=== PATIENT | female | born 1955 | race Caucasian/White ===

== ENCOUNTER → 2017-06-27 | Day surgery (SDC) | payer OTHER ==
[~2017-06-27] MED LIST: ASPI325T PO; FISH1000 PO; GLUCOSAMINE1500 CO1; LACTATED RINGER'S 1000 ML INJ 1,000 ML ONE; LANO0.1212 PO; NALOXONE HCL 0.4 MG/ML AMP ONE; OMEP20TA PO; OYST500T77 PO; PACE200T4 PO; PROPOFOL 200 MG/20 ML AMP IV ONE; SYNT50TA PO; TAB-TAB PO; TOVI4TAB PO
--- NOTE | 2017-06-27 12:19 | GIPROC ---
[facility] [address] [facility], [id number] EGD PROCEDURE REPORT EXAM DATE: 06/27/2017 PATIENT NAME: Jeannette Apple MR #: [id number] BIRTHDATE: 1955 ATTENDING: Shawnee Cedillo MD ORDER #: [id number] SUPERVISOR SALVAGE: Marilia Morales RN STATUS: outpatient INDICATIONS: The patient is a 62 yr old female here for an EGD due to history of Wagner's esophagus PROCEDURE PERFORMED: EGD w/ biopsy MEDICATIONS: None and Per Anesthesia. TOPICAL ANESTHETIC: CONSENT: The patient understands the risks and benefits of the procedure and understands that these risks include, but are not limited to: sedation, allergic reaction, infection, perforation and/or bleeding. Alternative means of evaluation and treatment include, among others: physical exam, x-rays, and/or surgical intervention. The patient elects to proceed with this endoscopic procedure. medical equipment was checked for proper function. Hand hygiene and appropriate measures for infection prevention was taken. After the risks, benefits and alternatives of the procedure were thoroughly explained, Informed consent was verified, confirmed and timeout was successfully executed by the treatment team. The patient was anesthetized with topical anesthesia and the EC-2990i ([id number]) endoscope was introduced through the mouth and advanced to the second portion of the duodenum. Retroflexed views revealed no abnormalities The gastroscope was then slowly withdrawn and removed. ESOPHAGUS: There was short segment Wagner's esophagus found in the distal esophagus. The length of circumferential Wagner's was 1cm (Effort C1) and the length of Maximal extent of Wagner's was 2cm (Effort M2). There was no nodular mucosa noted in the Wagner's segment. Multiple biopsies were performed using cold forceps. Sample sent for histology. STOMACH: There was erythematous moderate gastritis in the gastric antrum. DUODENUM: The duodenal mucosa appeared normal in the bulb and second portion of the duodenum. ADVERSE EVENTS: There were no complications. IMPRESSIONS: 1. There was short segment Wagner's esophagus found in the distal esophagus; multiple biopsies were performed 2. There was erythematous gastritis in the gastric antrum 3. Normal duodenal mucosa in the bulb and second portion of the duodenum 4. Retroflexed views revealed no abnormalities RECOMMENDATIONS: 1. Await biopsy results. Biopsy results will not be ready for 7-10 days. If you don't hear from us in two weeks, call our office for biopsy results. 2. Anti-reflux regimen 3. Continue PPI 4. Follow-up: GI clinic 2 week(s) PATIENT CONDITION: stable DISPOSITION: Home REPEAT EXAM: Return 1 year EGD pending biopsy results Shawnee Cedillo MD eSigned: Shawnee Cedillo MD 06/27/2017 12:19 PM cc: Raegan Resendez PATIENT NAME: Jeannette Apple MR#: [id number]
== END | disposition home or self-care (01) ==
LOC: ESDC 10:28
PROVIDERS: ATTEND Internal Medicine Gastroenterology
DX: K22.70 Barrett's esophagus without dysplasia (principal); K29.70 Gastritis, unspecified, without bleeding
CPT/HCPCS: 00731; 43239; 88305; J2310; J3010; J7120

== ENCOUNTER 2018-01-21 17:45 | Inpatient (IN) ==
[2018-01-21] MEDS ORDERED: Metoprolol Inj 5 MG/5 ML Vial IV.PUSH ONE (19:14)
[2018-01-21] MEDS ORDERED: Diatrizoate Meglum/Diatrizoate Sod Liq 9 ML UDC PO ONE (19:14)
--- NOTE | 2018-01-21 19:38 | ED ---
HPI General Chief Complaint: Abdominal Pain Stated Complaint: R side abdominal pain Time Seen by Provider: 01/21/18 18:51 Source: patient Mode of arrival: ambulatory Limitations: no limitations History of Present Illness HPI narrative: 62-year-old female who presents to the ED for evaluation of right lower quadrant abdominal pain. Per patient has had this pain for the past 2 days. Started yesterday. Today not getting better. Per patient is concerned about appendicitis. Per patient she still has her appendix. No other medical issues. She states not have any bowel movements or urinary issues. No nausea or vomiting. Per patient the pain comes and goes. Feels like an ache. Patient initially started on the lower abdomen bilaterally and it focused on the right lower quadrant currently only in the right lower quadrant. Does not radiate. Pain per patient is 6 out of 10. Has not taken anything for this. Has not seen anybody for this. Last surgery per patient was about 5-6 years ago when she had a gallbladder removed. Related Data Home Medications Medication Instructions Recorded Confirmed dabigatran etexilate [Pradaxa] 150 mg PO BID 01/22/18 01/22/18 levothyroxine 75 mcg PO DAILY 01/22/18 01/22/18 losartan 100 mg PO DAILY 01/22/18 01/22/18 metoprolol tartrate 50 mg PO BID 01/22/18 01/22/18 omeprazole magnesium [Prilosec OTC] 20 mg PO DAILY 01/22/18 01/22/18 oxybutynin chloride 5 mg PO BID 01/22/18 01/22/18 Allergies Allergy/AdvReac Type Severity Reaction Status Date / Time penicillin G Allergy Severe CHILDHOOD Verified 01/21/18 18:47 Review of Systems ROS: all other systems reviewed are negative [facility] Medical History Medical History Afib (Acute) GERD (gastroesophageal reflux disease) (Acute) HTN (hypertension) (Acute) Hypothyroid (Acute) Surgical History Surgical History H/O dilation and curettage (Acute) H/O: (Acute) History of lobectomy of lung (Acute) History of thoracentesis (Acute) Hx of cholecystectomy (Acute) Social History Social History Substance History: No History of Abuse Second Hand Smoke Exposure: No Smoking Status: Former smoker Tobacco Type: Cigarettes How Often Do You Have a Drink Containing Alcohol: Never Recent Travel in [facility] within the Last 8 Weeks: No Recent Out of Country Travel within the Last 8 Weeks: No Immunization History Tetanus Immunization: <5 Years Exam Narrative Exam Narrative: GENERAL: Well apperaing SKIN: Focused skin assessment warm/dry. HEAD: Atraumatic. Normocephalic. EYES: Pupils equal and round. No scleral icterus. No injection or drainage. ENT: No nasal bleeding or discharge. Mucous membranes pink and moist. Tongue is midline. No uvula deviation. NECK: Trachea midline. No JVD. CARDIOVASCULAR: Irregular irregular rate and rhythm. No murmur appreciated. RESPIRATORY: No accessory muscle use. Clear to auscultation. Breath sounds equal bilaterally. GASTROINTESTINAL: Abdomen soft, RLQ reproducible pain, nondistended. Hepatic and splenic margins not palpable. MUSCULOSKELETAL: No obvious deformities. No clubbing. No cyanosis. No edema. Full ROM of the upper and lower extremities bilaterally. 2+ pulses. NEUROLOGICAL: Awake and alert. No obvious cranial nerve deficits. Motor grossly within normal limits. Normal speech. PSYCHIATRIC: Appropriate mood and affect; insight and judgment normal. Course Initial Documented Vital Signs Temperature 98.4 F 01/21/18 17:58 Pulse Rate 103 H 01/21/18 17:58 Respiratory Rate 20 01/21/18 17:58 Blood Pressure 156/96 H 01/21/18 17:58 Last Documented Vital Signs Temperature 97.4 F L 01/23/18 12:00 Pulse Rate 93 H 01/23/18 12:00 Respiratory Rate 17 01/23/18 12:00 Blood Pressure 125/60 01/23/18 12:00 Pulse Oximetry 95 01/23/18 12:00 Medical Decision Making ZAHIDA Attestation ZAHIDA supervised visit: Yes Attestation: I, Dr. Aguirre have reviewed the advance practice practitioner's documentation and am in agreement, met with the patient face to face, made the diagnosis, and the medical decision making was done by me. *My assessment and Findings: Abdominal pain. Appendicitis. [facility] Narrative Medical decision making narrative: 62-year-old female who presents to the ED for evaluation of right lower quadrant abdominal pain. Patient was properly examined and found to have signs and symptoms consistent appears to be possible appendicitis. Patient currently in A. fib RVR. Per patient she missed 3 of her doses of her metoprolol. She was given 1 dose of metoprolol IV here with some improvement of her heart rate. Labs and imaging showed atrial fibrillation in RVR and acute early appendicitis. Case discussed with Dr Marquis who agrees with likely surgical treatment. He wants patient admitted to medicine due to patient in atrial fib in RVR. renee isabelip started. Dr Rivero agrees to admission. Medical Screen Exam Complete: Yes Emergency Medical Condition: Yes Differential Diagnosis Differential Diagnosis: Atrial fibrillation RVR versus appendicitis versus acute abdomen versus diverticulitis Medical Records Medical records reviewed: Yes I reviewed the patient's medical records. Lab Data Lab results reviewed: Yes I reviewed the patient's lab results. Result diagrams: 01/23/18 05:55 01/21/18 20:15 Lab Results 01/21/18 01/21/18 01/21/18 Range/Units 20:15 20:15 20:15 WBC 9.1 (4.0-11.0) th/mm3 RBC 4.12 (4.00-5.30) mil/mm3 Hgb 12.1 (11.6-15.3) gm/dL Hct 36.6 (35.0-46.0) % MCV 89.0 (80.0-100.0) fL MCH 29.5 (27.0-34.0) pg MCHC 33.1 (32.0-36.0) % RDW 16.2 (11.6-17.2) % Plt Count 239 (150-450) th/mm3 MPV 8.4 (7.0-11.0) fL Neut % (Auto) 68.8 (16.0-70.0) % Lymph % (Auto) 21.8 (9.0-44.0) % Haywood % (Auto) 7.6 (0.0-8.0) % Eos % (Auto) 1.2 (0.0-4.0) % Baso % (Auto) 0.6 (0.0-2.0) % Neut # (Auto) 6.2 (1.8-7.7) th/mm3 Lymph # (Auto) 2.0 (1.0-4.8) th/mm3 Haywood # (Auto) 0.7 (0.0-0.9) th/mm3 Eos # (Auto) 0.1 (0.0-0.4) th/mm3 Baso # (Auto) 0.1 (0.0-0.2) th/mm3 WBC Differential . Differential Comment Auto diff final PT (9.8-11.6) sec INR Ratio APTT (23.4-31.7) sec Sodium 138 (136-145) meq/L Potassium 3.7 (3.5-5.1) meq/L Chloride 102 (98-107) meq/L Carbon Dioxide 27.5 (21.0-32.0) meq/L Anion Gap 9 (5-15) meq/L BUN 9 (7-18) mg/dL Creatinine 0.86 (0.50-1.00) mg/dL Estimated GFR 67 L (>89) mL/min POC Glucose (68-110) mg/dl Random Glucose 68 L (74-106) mg/dL Lactic Acid 2.2 H (0.4-2.0) mmol/L Calcium 8.7 (8.5-10.1) mg/dL Magnesium 1.7 (1.5-2.5) mg/dL Total Bilirubin 0.6 (0.2-1.0) mg/dL AST 34 (15-37) U/L ALT 22 (10-53) U/L Alkaline Phosphatase 106 (45-117) U/L Total Protein 7.7 (6.4-8.2) g/dL Albumin 3.5 (3.4-5.0) g/dL Lipase 95 (73-393) U/L Urine Color (Yellw/Straw) Urine Clarity (Clear) Urine pH (5.0-8.5) Ur Specific Belle (1.002-1.035) Urine Protein (Neg-Trace) mg/dL Urine Glucose (UA) (Negative) mg/dL Urine Ketones (Negative) mg/dL Urine Occult Blood (Negative) Urine Nitrate (Negative) Urine Bilirubin (Negative) Urine Urobilinogen (Less than 2) mg/dL Ur Leukocyte Esterase (Negative) Urine RBC (0-3) /hpf Urine WBC (0-5) /hpf Ur Squamous Epith Cells (0-5) /hpf Urine Bacteria (None) /hpf Urine Mucus (Occasional) /lpf Micro UA Comment Ur Microscopic Review Urine Culture Comments Blood Type Blood Type Recheck Antibody Screen 01/21/18 01/21/18 01/22/18 Range/Units 20:15 22:20 00:08 WBC (4.0-11.0) th/mm3 RBC (4.00-5.30) mil/mm3 Hgb (11.6-15.3) gm/dL Hct (35.0-46.0) % MCV (80.0-100.0) fL MCH (27.0-34.0) pg MCHC (32.0-36.0) % RDW (11.6-17.2) % Plt Count (150-450) th/mm3 MPV (7.0-11.0) fL Neut % (Auto) (16.0-70.0) % Lymph % (Auto) (9.0-44.0) % Haywood % (Auto) (0.0-8.0) % Eos % (Auto) (0.0-4.0) % Baso % (Auto) (0.0-2.0) % Neut # (Auto) (1.8-7.7) th/mm3 Lymph # (Auto) (1.0-4.8) th/mm3 Haywood # (Auto) (0.0-0.9) th/mm3 Eos # (Auto) (0.0-0.4) th/mm3 Baso # (Auto) (0.0-0.2) th/mm3 WBC Differential Differential Comment PT 11.1 (9.8-11.6) sec INR 1.1 Ratio APTT 33.8 H (23.4-31.7) sec Sodium (136-145) meq/L Potassium (3.5-5.1) meq/L Chloride (98-107) meq/L Carbon Dioxide (21.0-32.0) meq/L Anion Gap (5-15) meq/L BUN (7-18) mg/dL Creatinine (0.50-1.00) mg/dL Estimated GFR (>89) mL/min POC Glucose 92 (68-110) mg/dl Random Glucose (74-106) mg/dL Lactic Acid (0.4-2.0) mmol/L Calcium (8.5-10.1) mg/dL Magnesium (1.5-2.5) mg/dL Total Bilirubin (0.2-1.0) mg/dL AST (15-37) U/L ALT (10-53) U/L Alkaline Phosphatase (45-117) U/L Total Protein (6.4-8.2) g/dL Albumin (3.4-5.0) g/dL Lipase (73-393) U/L Urine Color Straw (Yellw/Straw) Urine Clarity Clear (Clear) Urine pH 7.0 (5.0-8.5) Ur Specific Belle 1.003 (1.002-1.035) Urine Protein Negative (Neg-Trace) mg/dL Urine Glucose (UA) Negative (Negative) mg/dL Urine Ketones 20 (Negative) mg/dL Urine Occult Blood Negative (Negative) Urine Nitrate Negative (Negative) Urine Bilirubin Negative (Negative) Urine Urobilinogen Less than 2 (Less than 2) mg/dL Ur Leukocyte Esterase Negative (Negative) Urine RBC Less than 1 (0-3) /hpf Urine WBC 1 (0-5) /hpf Ur Squamous Epith Cells <1 (0-5) /hpf Urine Bacteria Occasional H (None) /hpf Urine Mucus Few H (Occasional) /lpf Micro UA Comment Culture not ind Ur Microscopic Review Not Reportable Urine Culture Comments Culture not ind Blood Type Blood Type Recheck Antibody Screen 01/22/18 01/22/18 01/23/18 Range/Units 02:05 04:02 05:55 WBC 10.5 (4.0-11.0) th/mm3 RBC 3.77 L (4.00-5.30) mil/mm3 Hgb 11.2 L (11.6-15.3) gm/dL Hct 34.0 L (35.0-46.0) % MCV 90.2 (80.0-100.0) fL MCH 29.7 (27.0-34.0) pg MCHC 32.9 (32.0-36.0) % RDW 16.1 (11.6-17.2) % Plt Count 261 (150-450) th/mm3 MPV 7.9 (7.0-11.0) fL Neut % (Auto) 82.0 H (16.0-70.0) % Lymph % (Auto) 11.0 (9.0-44.0) % Haywood % (Auto) 6.1 (0.0-8.0) % Eos % (Auto) 0.7 (0.0-4.0) % Baso % (Auto) 0.2 (0.0-2.0) % Neut # (Auto) 8.6 H (1.8-7.7) th/mm3 Lymph # (Auto) 1.2 (1.0-4.8) th/mm3 Haywood # (Auto) 0.6 (0.0-0.9) th/mm3 Eos # (Auto) 0.1 (0.0-0.4) th/mm3 Baso # (Auto) 0.0 (0.0-0.2) th/mm3 WBC Differential . Differential Comment Auto diff final PT 15.7 H (9.8-11.6) sec INR 1.6 Ratio APTT 40.3 H (23.4-31.7) sec Sodium (136-145) meq/L Potassium (3.5-5.1) meq/L Chloride (98-107) meq/L Carbon Dioxide (21.0-32.0) meq/L Anion Gap (5-15) meq/L BUN (7-18) mg/dL Creatinine (0.50-1.00) mg/dL Estimated GFR (>89) mL/min POC Glucose (68-110) mg/dl Random Glucose (74-106) mg/dL Lactic Acid (0.4-2.0) mmol/L Calcium (8.5-10.1) mg/dL Magnesium (1.5-2.5) mg/dL Total Bilirubin (0.2-1.0) mg/dL AST (15-37) U/L ALT (10-53) U/L Alkaline Phosphatase (45-117) U/L Total Protein (6.4-8.2) g/dL Albumin (3.4-5.0) g/dL Lipase (73-393) U/L Urine Color (Yellw/Straw) Urine Clarity (Clear) Urine pH (5.0-8.5) Ur Specific Belle (1.002-1.035) Urine Protein (Neg-Trace) mg/dL Urine Glucose (UA) (Negative) mg/dL Urine Ketones (Negative) mg/dL Urine Occult Blood (Negative) Urine Nitrate (Negative) Urine Bilirubin (Negative) Urine Urobilinogen (Less than 2) mg/dL Ur Leukocyte Esterase (Negative) Urine RBC (0-3) /hpf Urine WBC (0-5) /hpf Ur Squamous Epith Cells (0-5) /hpf Urine Bacteria (None) /hpf Urine Mucus (Occasional) /lpf Micro UA Comment Ur Microscopic Review Urine Culture Comments Blood Type O Positive Blood Type Recheck Not needed Antibody Screen Negative Imaging Data Attestation: I personally reviewed and interpreted this imaging study as follows : Radiologist's impression: Abdomen/Pelvis CT 01/21/18 19:14 CONCLUSION: 1. Appendix is mildly dilated to 13 mm with very minimal periappendiceal inflammatory changes. Findings are most characteristic of a very early appendicitis. No abscess, obstruction, free fluid or free air. 2. Nonobstructing 4 mm calculus lower pole right kidney. Chest X-Ray 01/22/18 23:52 CONCLUSION: Cardiomegaly with mild basilar atelectasis. ECG Data Attestation: I personally reviewed and interpreted this ECG as follows: Interpretation: EKG shows atrial fibrillation in RVR. Read by me and attending. Discharge Plan Discharge Disposition Patient Disposition: 30 Still Patient Discharge Condition Condition: Stable Discharge Order Discharge Orders: Discharge Order (Routine); Ordered 01/23/18 Ordered By: Diane Wright Discharge Details Anticipated Discharge Date: 01/23/18 Discharge Comment: Please send copies of notes from this hospitalization to the pts PCP, Dr. 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 Sis Chand. Thank you. Followup with Dr. Lombardi in 7-10 days, call for that appt Followup with Dr. Sahu in 1 week, call for that appt Diagnosis: Acute appendicitis, Atrial fibrillation with RVR Physicians Team ED Provider: Lucero Lopez ED Midlevel Provider: Bo Wade Primary Care Provider: Osmar Sahu Attending Provider: Ralph Dumas Other Providers: Sly Marquis ED Status: Left Department Discharge Information Discharge Date/Time: 01/22/18 06:41
[2018-01-21 21:09] LABS: Baso # (Auto) 0.1 th/mm3 (0.0-0.2); Baso % (Auto) 0.6 % (0.0-2.0); Eos # (Auto) 0.1 th/mm3 (0.0-0.4); Eos % (Auto) 1.2 % (0.0-4.0); Hematocrit 36.6 % (35.0-46.0); Hemoglobin 12.1 gm/dL (11.6-15.3); Lymph % (Auto) 21.8 % (9.0-44.0); Mean Corpuscular HGB Conc 33.1 % (32.0-36.0); Mean Corpuscular Hemoglobin 29.5 pg (27.0-34.0); Mean Platelet Volume 8.4 fL (7.0-11.0); Mono # (Auto) 0.7 th/mm3 (0.0-0.9); Mono % (Auto) 7.6 % (0.0-8.0); Neut # (Auto) 6.2 th/mm3 (1.8-7.7); Neut % (Auto) 68.8 % (16.0-70.0); Platelet Count 239 th/mm3 (150-450); Red Blood Count 4.12 mil/mm3 (4.00-5.30); Red Cell Distribution Width 16.2 % (11.6-17.2); White Blood Count 9.1 th/mm3 (4.0-11.0)
[2018-01-21 21:14] LABS: Bacteria,Urine Occasional /hpf; Bilirubin,Urine Negative (Negative); Clarity,Urine Clear (Clear); Color,Urine Straw (Yellw/Straw); Glucose,Urine (UA) Negative (Negative); Leukocyte Esterase,Urine Negative (Negative); Mucus,Urine Few /lpf (Occasional); Nitrite,Urine Negative (Negative); Specific Gravity,Urine 1.003 (1.002-1.035); Squamous Epithelial Cell,Urine <1 /hpf (0-5)
[2018-01-21 21:28] LABS: Albumin 3.5 g/dL (3.4-5.0); Anion Gap 9 meq/L (5-15); Aspartate Aminotransferase 34 U/L (15-37); Blood Urea Nitrogen 9 mg/dL (7-18); Calcium 8.7 mg/dL (8.5-10.1); Carbon Dioxide 27.5 meq/L (21.0-32.0); Chloride 102 meq/L (98-107); Glomerular Filtration Rate 67 mL/min (>89); Glucose,Random 68 mg/dL (74-106); Lipase 95 U/L (73-393); Magnesium 1.7 mg/dL (1.5-2.5); Potassium 3.7 meq/L (3.5-5.1); Sodium 138 meq/L (136-145)
[2018-01-21] MEDS ORDERED: Dextrose 50% in Water 50 ML Vial IV.PUSH ONE (21:31)
[2018-01-21 21:32] LABS: Alanine Aminotransferase 22 U/L (10-53); Alkaline Phosphatase 106 U/L (45-117); Total Protein 7.7 g/dL (6.4-8.2)
[2018-01-21 22:58] LABS: Activated Partial Thrombo Time 33.8 sec (23.4-31.7); INR 1.1 Ratio; Prothrombin Time 11.1 sec (9.8-11.6)
--- NOTE | 2018-01-21 23:38 | CT ---
EXAM DATE: 01/21/2018 11:19 PM EST AGE/SEX: 62 years / Female INDICATIONS: Right lower abdominal pain with diarrhea. CLINICAL DATA: This is the patient's initial encounter. Patient reports that signs and symptoms have been present for 1 day and indicates a pain score of 7/10. MEDICAL/SURGICAL HISTORY: None. None. ORAL CONTRAST: No oral contrast ingested. RADIATION DOSE: 27.17 CTDI (mGy) COMPARISON: No prior exams available for comparison. TECHNIQUE: Multiple contiguous axial images were obtained through the abdomen and pelvis following b olus infusion of 99 ml Omnipaque 350 (iohexol) nonionic water-soluble contrast as a single exam dos e. No oral contrast ingested. Using automated exposure control and adjustment of the mA and/or kV ac cording to patient size, radiation dose was kept as low as reasonably achievable to obtain optimal di agnostic quality images. DICOM format image data is available electronically for review and comparis on. FINDINGS: Lung bases demonstrate minimal scarring. Mild fatty liver. Previous cholecystectomy. Moderate-sized h iatal hernia. Adrenals, kidneys demonstrate no acute findings. There is a nonobstructing 4 mm calculus lower pole r ight kidney. No hydronephrosis or obstructive uropathy. The appendix is anterior to the right colon and is mildly dilated to about 13 mm in maximal diameter with some very minimal periappendiceal inflammatory change. Findings could represent an early appendi citis. No bowel obstruction. No free air or free fluid. No adenopathy. CONCLUSION: 1. Appendix is mildly dilated to 13 mm with very minimal periappendiceal inflammatory changes. Findi ngs are most characteristic of a very early appendicitis. No abscess, obstruction, free fluid or free air. 2. Nonobstructing 4 mm calculus lower pole right kidney. Electronically signed by: Dwayne Koroma MD 01/21/2018 11:36 PM EST
[2018-01-21] MEDS ORDERED: Levofloxacin 500 mg Premix Inj 500 MG/100 ML PIGGYBACK IV.SIG ONE (23:55)
[2018-01-22] MEDS ORDERED: dilTIAZem Inj 125 MG in Sodium Chlor 0.9% Inj 100 ML IV.CONT PRN ×2
[2018-01-22] MEDS ORDERED: Morphine Sulfate Inj 2 MG/ML Vial IV.PUSH PRN (00:07)
--- NOTE | 2018-01-22 00:47 | XR ---
EXAM DATE: 01/22/2018 12:33 AM EST AGE/SEX: 62 years / Female INDICATIONS: Cough. CLINICAL DATA: This is the patient's initial encounter. Patient reports that signs and symptoms have been present for 1 day and indicates a pain score of 0/10. MEDICAL/SURGICAL HISTORY: Non-responsive. Non-responsive. COMPARISON: [facility] [place], CT ABDOMEN & PELVIS W CONTRAST, 01/21/2018. . FINDINGS: Heart size is enlarged. There is basilar density bilaterally, likely mild atelectasis. No significant effusion. No pneumothorax. No acute bony abnormality. CONCLUSION: Cardiomegaly with mild basilar atelectasis. Electronically signed by: Dwayne Koroma MD 01/22/2018 12:46 AM EST
[2018-01-22 02:34] LABS: Activated Partial Thrombo Time 40.3 sec (23.4-31.7); INR 1.6 Ratio; Prothrombin Time 15.7 sec (9.8-11.6)
[2018-01-22] MEDS ORDERED: Bupivacaine/Epinephrine Inj 0.25% 50 ML Vial ONE (05:58)
[2018-01-22] MEDS ORDERED: fentaNYL Citrate Inj 100 MCG/2 ML Ampul ONE (07:10)
[2018-01-22] MEDS ORDERED: Post-op Orders (for Pharmacy) OTHER ONE (07:48)
[2018-01-22] MEDS ORDERED: Promethazine 25 MG Supp RECTAL PRN (07:48)
[2018-01-22] MEDS ORDERED: Bisacodyl 10 MG Supp RECTAL PRN (07:48)
[2018-01-22] MEDS ORDERED: *morphine SULFATE 4 MG/ML PERIprocedure ONLY ONE (07:50)
--- NOTE | 2018-01-22 08:14 | MP ---
cc: Sly Marquis MD DATE OF OPERATION: 01/22/2018 PREOPERATIVE DIAGNOSIS: Acute appendicitis. POSTOPERATIVE DIAGNOSIS: Acute appendicitis. PROCEDURE PERFORMED: Laparoscopic appendectomy. SURGEON: Sly Marquis. ANESTHESIA: General endotracheal anesthesia. ESTIMATED BLOOD LOSS: Less than 10 mL. FINDINGS: Inflamed appendix. SPECIMENS: Appendix. COMPLICATIONS: None. OPERATION: The patient was brought to the operating room, placed on the operating table in supine position. Bilateral sequential inflation device placed on the lower extremities. General anesthesia instituted. The abdomen was prepped and draped sterilely. The umbilical region anesthetized with 0.25% Marcaine with epinephrine. A skin incision was made. A 5 mm Optiview port placed under direct vision and pneumoperitoneum created. Under direct vision, a 5 mm suprapubic port and a 12 mm left lower quadrant port was placed. Prior to placement of all ports, the skin and peritoneum anesthetized with 0.25% Marcaine with epinephrine. The patient was placed in Trendelenburg position, right side up. The appendix was visualized and brought into view. The mesoappendix was using Harmonic scalpel. The appendix was mobilized to its base. The appendix was amputated at its base using an endovascular stapler. The appendix was retrieved from the peritoneal cavity in an Endopouch through the 12 mm port site. The staple line was inspected and appeared intact. No evidence of bleeding. The pelvis irrigated with saline. SNoW hemostatic device left in the mesentery of the mesoappendix. The fascia at the 12 mm port site approximated with 0 Vicryl using a Darion-Skylar fascial closure device. CO2 released. All ports were removed. All skin incisions closed with 4-0 Monocryl. The abdominal wall was cleaned and a sterile dressing placed. The patient was awakened and taken to the recovery room. MD BRANDI Mcneill/bj , 07:56 AM , 08:02 AM
[2018-01-22] MEDS: Sod Chloride 0.9% Inj 1,000 ML IV.CONT SCH ×2 (08:52→17:58)
--- NOTE | 2018-01-22 09:00 | P.HPIM ---
History of Present Illness Primary Care Physician: Osmar Sahu MD History of Present Illness: Pt is 62 yo female with afib, htn, hypothyroidism presenting to ED last night for rlq abdomen pain. Says she began having sx's on Sunday and it worsened. She had some diarrhea. In ED found to have afib/rvr and acute appendicitis. In ED had iv lopressor and iv cardizem. Went for lap appe this AM and required another dose iv lopressor. currently afib HR 80s-90s and in no distress. Pt lying in PACU bed and able to give hx she appears comfortable and stable. PMH afib htn hypothyroidism lap sandra c section gerd thyroid nodules barretts esophagus chronic left lower lung empyema and abscess. 2010. bronch,left thoracotomy, decortication,pleurectomy,left lung wedge resection positive for strep viridans. SH: currently no etoh/tob quit tob over 30yrs ago FH: [place]. Diagnosis (1) Acute appendicitis: (2) Atrial fibrillation with RVR: (3) HTN (hypertension): (4) Hypothyroidism: Inpatient Certification Inpatient Certification: I certify that the inpatient services were ordered in accordance with Medicare regulations governing the order. This includes certification that hospital inpatient services are reasonable and necessary and in the case of services not specified as inpatient-only under 42 CFR 419.22(n), that they are appropriately provided as inpatient services in accordance to with the 2-midnight benchmark under 43 CFR 412.3(e) Estimated Total Length of Stay (Days): 2 Plans for Post Hospital Care: Home Medications and Allergies Allergies Allergy/AdvReac Type Severity Reaction Status Date / Time penicillin G Allergy Severe CHILDHOOD Verified 01/21/18 18:47 Home Medications Medication Instructions Recorded Confirmed Type dabigatran etexilate [Pradaxa] 150 mg PO BID 01/22/18 01/22/18 History levothyroxine 75 mcg PO DAILY 01/22/18 01/22/18 History losartan 100 mg PO DAILY 01/22/18 01/22/18 History metoprolol tartrate 50 mg PO BID 01/22/18 01/22/18 History omeprazole magnesium [Prilosec OTC] 20 mg PO DAILY 01/22/18 01/22/18 History oxybutynin chloride 5 mg PO BID 01/22/18 01/22/18 History Active Medications: Active Medications Hydrocodone Bitart/Acetaminophen ([place] 5/325) 2 tab PO Q4H PRN PRN Reason: PAIN SCALE 6 TO 10 Al Hydroxide/Mg Hydroxide (Milk Of Magnesia Liq) 30 ml PO Q12H PRN PRN Reason: Mild Constipation Bisacodyl (Dulcolax Supp) 10 mg RECTAL DAILY PRN PRN Reason: SEVERE CONSITIPATION Diltiazem HCl 125 mg/ Sodium (Chloride) 125 mls @ 5 mls/hr IV.CONT TITRATE PRN ; Protocol PRN Reason: Per Protocol Levofloxacin/Dextrose (Levaquin 500 Mg Premix Inj) 500 mg in 100 mls @ 100 mls/ hr IV.SIG Q24H [facility] Metronidazole/Sodium Chloride (Flagyl 500 Mg Inj) 100 mls @ 100 mls/hr IV.SIG Q8H COUNTS INCLUDE 234 BEDS AT THE [facility] Last Admin: 01/22/18 08:49 Dose: 100 mls/hr Sodium Chloride (Ns Inj) 1,000 mls @ 100 mls/hr IV.CONT .Q10H COUNTS INCLUDE 234 BEDS AT THE [facility] Last Admin: 01/22/18 08:52 Dose: 100 mls/hr Lactulose (Lactulose Liq) 30 ml PO DAILY PRN PRN Reason: SEVERE CONSITIPATION Miscellaneous Information (Mis Nursing Information) 1 each OTHER UNSCH PRN PRN Reason: SEE LABEL COMMENTS Stop: 01/23/18 08:31 Morphine Sulfate (Morphine Inj) 2 mg IV.PUSH Q3H PRN PRN Reason: pain level 3-10 Ondansetron HCl (Zofran Odt) 4 mg PO Q6H PRN PRN Reason: NAUSEA OR VOMITING Ondansetron HCl (Zofran Inj) 4 mg IV.PUSH Q6H PRN PRN Reason: NAUSEA OR VOMITING Oxycodone/Acetaminophen (Percocet 5/325 Mg) 1 tab PO Q4H PRN PRN Reason: PAIN SCALE 1 TO 5 Promethazine HCl (Phenergan) 25 mg PO Q6H PRN PRN Reason: NAUSEA OR VOMITING Promethazine HCl (Phenergan Supp) 25 mg RECTAL Q6H PRN PRN Reason: NAUSEA OR VOMITING Senna/Docusate Sodium (Nichol-Colace) 1 tab PO BID [facility]SI Sennosides (Senokot) 17.2 mg PO Q12H PRN PRN Reason: Moderate Constipation Sodium Chloride (Ns Flush) 2 ml IV.FLUSH BID CHELSI Sodium Chloride (Ns Flush) 2 ml IV.FLUSH PRN PRN PRN Reason: FLUSH AFTER USING IV ACCESS Physical Exam Vital signs: Last Vital Signs Temp 98.0 F 01/22/18 07:35 Pulse 90 01/22/18 08:45 Resp 20 01/22/18 05:47 BP 144/71 H 01/22/18 08:45 Pulse Ox 99 01/22/18 08:45 Narrative: nad heart irreg lung good air entry dennise abd few bs. appropriately tender ext no edema Results Labs CBC & Chem 7: 01/21/18 20:15 01/21/18 20:15 Caprini VTE Risk Assessment Caprini Risk Assessment Model: Point Value = 1 Point Value = 2 Point Value = 3 Point Value = 5 Age 41-60 Minor surgery BMI > 25 kg/m2 Swollen legs Varicose veins or History of unexplained or recurrent spontaneous Oral contraceptives or hormone replacement Sepsis (< 1 month) Serious lung disease, including pneumonia (< 1 month) Abnormal pulmonary function Acute myocardial infarction Congestive heart failure (< 1 month) History of inflammatory bowel disease Medical patient at bed rest Age 61-74 Arthroscopic surgery Major open surgery (> 45 min) Laparoscopic surgery (> 45 min) Malignancy Confined to bed (> 72 hours) Immobilizing plaster cast Central venous access Age >= 75 History of VTE Family history of VTE Factor V Leiden Prothrombin [id number] Lupus anticoagulant Anticardiolipin antibodies Elevated serum homocysteine Heparin-induced thrombocytopenia Other congenital or acquired thrombophilia Stroke (< 1 month) Elective arthroplasty Hip, pelvis, or leg fracture Acute spinal cord injury (< 1 month) Prophylaxis Regimen: Total Risk Factor Score Risk Level Prophylaxis Regimen 0-1 Low Early ambulation 2 Moderate Order ONE of the following: *Sequential Compression Device (SCD) *Heparin 5000 units SQ BID 3-4 Higher Order ONE of the following medications: *Heparin 5000 units SQ TID *Enoxaparin/Lovenox 40 mg SQ daily (WT < 150 kg, CrCl > 30 mL/min) *Enoxaparin/Lovenox 30 mg SQ daily (WT < 150 kg, CrCl > 10-29 mL/min) *Enoxaparin/Lovenox 30 mg SQ BID (WT < 150 kg, CrCl > 30 mL/min) AND/OR *Sequential Compression Device (SCD) 5 or more Highest Order ONE of the following medications: *Heparin 5000 units SQ TID (Preferred with Epidurals) *Enoxaparin/Lovenox 40 mg SQ daily (WT < 150 kg, CrCl > 30 mL/min) *Enoxaparin/Lovenox 30 mg SQ daily (WT < 150 kg, CrCl > 10-29 mL/min) *Enoxaparin/Lovenox 30 mg SQ BID (WT < 150 kg, CrCl > 30 mL/min) AND *Sequential Compression Device (SCD) Assessment and Plan Assessment (1) Acute appendicitis: Code(s): K35.80 - Unspecified acute appendicitis Status: Acute (2) Atrial fibrillation with RVR: Code(s): I48.91 - Unspecified atrial fibrillation Status: Acute (3) HTN (hypertension): Code(s): I10 - Essential (primary) hypertension Status: Chronic (4) Hypothyroidism: Code(s): E03.9 - Hypothyroidism, unspecified Status: Chronic Plan 1. acute appendicitis s/p lap appe today 2. afib/rvr. currently controlled 3. hypothyroidism 4. gerd/barretts esophagus 5. hx left lung abscess/empyema s/p decortication/pleurectomy/thoracotomy wedge resection positive for strep viridans in 2009. 5. htn plan resume her metoprolol today pradaxa soon when ok with gen surg resume her other home medication for htn/hypothyroidism advance diet per gen surg. IVF. pain control dc when ok with gen surg. _ (1) Acute appendicitis Qualifiers: Acute appendicitis type: unspecified acute appendicitis type Appendicitis abscess presence: Appendicitis gangrene presence: Appendicitis perforation presence: Qualified Code(s): K35.80 - Unspecified acute appendicitis
[2018-01-22] MEDS: Metoprolol Tartrate 50 MG Tablet PO SCH ×2 (10:00→22:35)
[2018-01-22] MEDS: Senna/Docusate Sodium 8.6/50 MG Tablet PO SCH ×2 (13:39→22:35)
--- NOTE | 2018-01-22 15:47 | ECG ---
Date Performed: 01/22/2018 Time Performed: 04:25:34 PTAGE: 62 years EKG: ATRIAL FIBRILLATION WITH RAPID VENTRICULAR RESPONSE ABNORMAL RHYTHM ECG PREVIOUS TRACING :03/16/2009 @06.01 Compared to previous tracing, the atrial firbrillation With rapid ventricular response is new. Prior EKG showed Sinus rhythm . DOCTOR: Ayo Bennett Interpretating Date/Time 01/22/2018 15:47:09
[2018-01-23] MEDS ORDERED: Levofloxacin 500 mg Premix Inj 500 MG/100 ML PIGGYBACK IV.SIG SCH (01:00)
[2018-01-23] MEDS: Sod Chloride 0.9% Inj 1,000 ML IV.CONT SCH ×2 (02:32→03:40)
[2018-01-23] MEDS ORDERED: Levothyroxine 75 MCG Tablet PO SCH (06:00)
[2018-01-23 06:24] LABS: Baso % (Auto) 0.2 % (0.0-2.0); Eos # (Auto) 0.1 th/mm3 (0.0-0.4); Eos % (Auto) 0.7 % (0.0-4.0); Hemoglobin 11.2 gm/dL (11.6-15.3); Lymph # (Auto) 1.2 th/mm3 (1.0-4.8); Mean Corpuscular HGB Conc 32.9 % (32.0-36.0); Mean Corpuscular Hemoglobin 29.7 pg (27.0-34.0); Mean Corpuscular Volume 90.2 fL (80.0-100.0); Mean Platelet Volume 7.9 fL (7.0-11.0); Mono # (Auto) 0.6 th/mm3 (0.0-0.9); Mono % (Auto) 6.1 % (0.0-8.0); Neut # (Auto) 8.6 th/mm3 (1.8-7.7); Platelet Count 261 th/mm3 (150-450); Red Blood Count 3.77 mil/mm3 (4.00-5.30); Red Cell Distribution Width 16.1 % (11.6-17.2); White Blood Count 10.5 th/mm3 (4.0-11.0)
[2018-01-23] MEDS ORDERED: Pantoprazole Sodium 20 MG DR Tablet PO SCH (09:00)
[2018-01-23] MEDS: Senna/Docusate Sodium 8.6/50 MG Tablet PO SCH (10:09)
[2018-01-23] MEDS: Metoprolol Tartrate 50 MG Tablet PO SCH (10:09)
--- NOTE | 2018-01-23 10:24 | P.PNIM ---
Subjective Interval history: Pt without any new complaints. She is tolerating full liquids No flatus or BM yet this morning HR is better controlled on recorded vital signs. Physical Exam Vital signs: Last Vital Signs Temp 97.5 F L 01/23/18 08:00 Pulse 90 01/23/18 08:00 Resp 18 01/23/18 08:00 BP 138/65 01/23/18 08:00 Pulse Ox 93 L 01/23/18 08:00 Narrative: General: NAD, AAOx3 Cardiac: Irregularly irregular Chest: good air entry bilaterally Abd: Few BS, soft, appropriately tender Ext: no edema Results Labs CBC & Chem 7: 01/23/18 05:55 01/21/18 20:15 Imaging Abdomen/Pelvis CT 01/21/18 19:14 CONCLUSION: 1. Appendix is mildly dilated to 13 mm with very minimal periappendiceal inflammatory changes. Findings are most characteristic of a very early appendicitis. No abscess, obstruction, free fluid or free air. 2. Nonobstructing 4 mm calculus lower pole right kidney. Chest X-Ray 01/22/18 23:52 CONCLUSION: Cardiomegaly with mild basilar atelectasis. Assessment and Plan Assessment (1) Acute appendicitis: Code(s): K35.80 - Unspecified acute appendicitis Status: Acute (2) Atrial fibrillation with RVR: Code(s): I48.91 - Unspecified atrial fibrillation Status: Acute (3) HTN (hypertension): Code(s): I10 - Essential (primary) hypertension Status: Chronic (4) Hypothyroidism: Code(s): E03.9 - Hypothyroidism, unspecified Status: Chronic Plan 1. Acute appendicitis s/p lap appendectomy on 01/22/18 2. A. fib/RVR, currently controlled 3. Hypothyroidism 4. GERD/Wagner's esophagus 5. Hx left lung abscess/empyema s/p decortication/pleurectomy/thoracotomy wedge resection positive for strep viridans in 2009. 5. HTN Plan - Cont. her metoprolol 50mg po BID - Pradaxa 150mg po BID resumed on 01/23 - Cont. home dose of Losartan 100mg po daily - Advance diet per gen surg. - Pain control PRN - Pt stable for d/c when ok with gen surg. 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 Chand, upon discharge, per pts request. Progress Note: Quality VTE Deep Vein Thrombosis/Pulmonary Embolism Present on Admission: No _ (1) Acute appendicitis Qualifiers: Acute appendicitis type: unspecified acute appendicitis type Appendicitis abscess presence: Appendicitis gangrene presence: Appendicitis perforation presence: Qualified Code(s): K35.80 - Unspecified acute appendicitis
--- NOTE | 2018-01-23 14:35 | P.PNGS ---
Subjective Patient reports: feels better, tolerating liquids well (denies chest pain, palpitations or SOB. Tolerating full liquid diet well.), no flatus Physical Exam Vital signs: Vital Signs 01/22/18 16:00 01/22/18 20:00 01/23/18 00:00 Temperature 97.2 F L 97.6 F 97.6 F Pulse Rate 100 H 96 H 69 Respiratory Rate 18 17 17 Blood Pressure 137/87 130/79 121/56 L Pulse Oximetry 91 L 93 L 93 L 01/23/18 04:00 01/23/18 08:00 01/23/18 12:00 Temperature 97.3 F L 97.5 F L 97.4 F L Pulse Rate 93 H 90 93 H Respiratory Rate 17 18 17 Blood Pressure 137/61 138/65 125/60 Pulse Oximetry 93 L 93 L 95 Intake & Output 01/22/18 01/23/18 01/23/18 18:59 06:59 18:59 Intake Total 1280 / 1280 1900 / 1900 100 / 100 Balance 1280 / 1280 1900 / 1900 100 / 100 Weight 147.41 kg 147.7 kg Intake: IV 400 / 400 1000 / 1000 100 / 100 NS Inj 1,000 ML @ 100 mls/hr IV 200 / 200 800 / 800 .CONT .Q10H CHELSI Rx#:[id number] Levaquin 500 mg Premix Inj 500 100 / 100 mg In 100 ml @ 100 mls/hr IV. SIG Q24H CHELSI Rx#:[id number] Flagyl 500 MG Inj 100 ML @ 100 200 / 200 100 / 100 100 / 100 mls/hr IV.SIG Q8H CHELSI Rx#: [id number] Oral 880 / 880 900 / 900 Other: # Voids 1 3 Date of Last Bowel Movement 01/21/18 Weight On Admission 147.41 kg - Constitutional no acute distress - Routine Neck Exam Present: supple - Routine Respiratory Exam Present: CTA bilaterally - Routine Cardiovascular Exam Present: RRR, S1, S2 - Routine Abdominal Exam Present: soft Comments: normal post operative tenderness, laproscopic sites WNL. Results - Labs 01/23/18 05:55 01/21/18 20:15 Laboratory Results - last 24 hr 01/23/18 05:55 WBC 10.5 RBC 3.77 L Hgb 11.2 L Hct 34.0 L MCV 90.2 MCH 29.7 MCHC 32.9 RDW 16.1 Plt Count 261 MPV 7.9 Neut % (Auto) 82.0 H Lymph % (Auto) 11.0 [place] % (Auto) 6.1 Eos % (Auto) 0.7 Baso % (Auto) 0.2 Neut # (Auto) 8.6 H Lymph # (Auto) 1.2 [place] # (Auto) 0.6 Eos # (Auto) 0.1 Baso # (Auto) 0.0 WBC Differential . Differential Comment Auto diff final - Imaging Imaging: ITS Impressions Abdomen/Pelvis CT 01/21/18 19:14 CONCLUSION: 1. Appendix is mildly dilated to 13 mm with very minimal periappendiceal inflammatory changes. Findings are most characteristic of a very early appendicitis. No abscess, obstruction, free fluid or free air. 2. Nonobstructing 4 mm calculus lower pole right kidney. Chest X-Ray 01/22/18 23:52 CONCLUSION: Cardiomegaly with mild basilar atelectasis. Assessment and Plan - Plan POD#1 laproscopic appendectomy Tolerating full liquids well may advance to regular diet once passing flatus. Miralax and colace for constipation. Ambulate ad praveena May D/C home today if ok with Internal Medicine. Followup in office 10 days. Code Status: full Discussed Condition With: patient.
== END 2018-01-23 16:40 | disposition home or self-care (01) ==
LOC: NEPE 17:45 → NEDA 23:58 → NEDH 01-22 03:44 → N07 01-22 14:18
PROVIDERS: ADMIT Hospitalist; ATTEND Hospitalist
PROC: LAPAPPY (ICD-10-PCS; 2018-01-22 06:23)